=== PATIENT | female | born 1985 | race Two or more races ===

== ENCOUNTER 2023-08-27 14:12 | Inpatient (IN) | payer SELFPAY ==
[~2023-08-27] VITALS: Ht 170.2 cm; Wt 138.3 kg
[2023-08-27] MEDS ORDERED: AZITHROMYCIN 500MG/ 250ML 250 ML IV ONE (15:00)
[2023-08-27] MEDS: SODIUM CHLORIDE 0.9% 4,100 ML IV ONE (15:21)
[2023-08-27] MEDS: cefTRIAXone 1GM/50ML D5W 50 ML IV ONE ×2 (15:22→15:23)
[2023-08-27 15:24] LABS: Basophils # (auto) 0 10 ^3/uL (0-0.2); Basophils % (auto) 0.3 % (0.0-2.0); Eosinophils # (auto) 0 10 ^3/uL (0-0.8); Eosinophils % (auto) 0.1 % (0.0-7.0); Hematocrit 37.6 % (36.0-46.0); Hemoglobin 12.3 g/dL (12.2-16.2); Lymphocytes # (auto) 1.6 10 ^3/uL (0.4-5.4); Lymphocytes % (auto) 14.8 % (10.0-50.0); Mean Corpuscular Hemoglobin 27.9 pg (28.0-32.0); Mean Corpuscular Hgb Conc. 32.7 g/dL (32.0-36.0); Mean Corpuscular Volume 85.2 fL (80.0-100.0); Monocytes # (auto) 1.1 10 ^3/uL (0-1.3); Monocytes % (auto) 10.4 % (0.0-12.0); Neutrophils # (auto) 8.1 10 ^3/uL (1.6-8.6); Neutrophils % (auto) 74.4 % (37.0-80.0); Nucleated Red Blood Cells % 0.1 %; Red Blood Cells 4.41 10^6/uL (4.0-5.20); Red Cell Distribution Width 13.8 % (11.8-14.3); White Blood Cell 10.8 10^3/uL (4.4-10.8)
[2023-08-27 15:36] LABS: Alanine Aminotransferase 11 U/L (7-40); Albumin 4.5 g/dL (3.2-4.8); Alkaline Phosphatase 80 U/L (46-116); Anion Gap 12 (5-15); Aspartate Aminotransferase 9 U/L (13-40); BUN/Creatinine Ratio 11.3 (10.0-20.0); Blood Urea Nitrogen 7 mg/dL (9-23); Calcium 9.1 mg/dL (8.7-10.4); Carbon Dioxide 22 mmol/L (20-30); Chloride 101 mmol/L (98-107); Glucose 107 mg/dL (74-106); Lipase 24 U/L (12-53); Magnesium 1.8 mg/dL (1.6-2.6); Potassium 3.5 mmol/L (3.5-5.1); Sodium 135 mmol/L (136-145); Total Protein 7.4 g/dL (5.7-8.2)
[2023-08-27 15:52] LABS: INR 1.12 (0.9-1.15); Partial Thromboplastin Time 30.4 SEC (24.5-34.5); Prothrombin Time 11.9 sec (9.3-11.8)
[2023-08-27 16:32] LABS: COVID19 ANTIGEN SOFIA FIA NEGATIVE (NEGATIVE); Rapid Influenza A Negative (Negative); Rapid Influenza B Negative (Negative)
[2023-08-27 16:38] LABS: Urine Bacteria NONE SEEN /hpf (None Seen); Urine Blood Negative /uL (Negative); Urine Clarity HAZY (Clear); Urine Color Yellow (Yellow); Urine Mucus FEW (None Seen); Urine Protein, UAD 2+ (Negative); Urine Specific Gravity 1.029 (1.001-1.035); Urine WBC 11 /hpf (0 - 5)
[2023-08-27] MEDS ORDERED: ACETAMINOPHEN 325 MG TAB PO PRN (18:00)
[2023-08-27] MEDS ORDERED: ALBUTEROL SULF 2.5 MG/0.5ML(0.5%) NEB SOLN NEB PRN ×2 (18:00→19:15)
[2023-08-27 18:27] VITALS: PULSE 102; RESP 22; O2SAT 92; O2SAT 93
[2023-08-27] MEDS: IPRATROPIUM BROM 0.5 MG/2.5ML INH SOL NEB SCH ×2 (18:27→21:45)
[2023-08-27] MEDS: ALBUTEROL SULF 2.5 MG/0.5ML(0.5%) NEB SOLN NEB SCH ×2 (18:28→21:45)
[2023-08-27 18:32] VITALS: PULSE 110; RESP 20; O2SAT 95
[2023-08-27 18:36] VITALS: BP 117/81; PULSE 101; PULSE 110; RESP 20; RESP 22; TEMP 97.2; O2SAT 100; O2SAT 95
[2023-08-27 18:44] LABS: Triglycerides 72 mg/dL (< 150)
[2023-08-27 18:45] LABS: LDL Cholesterol 71 mg/dL (< 100)
[2023-08-27 18:46] LABS: Cholesterol 134 mg/dL (< 200); HDL Cholesterol 46 mg/dL (40-59)
[2023-08-27] MEDS: SODIUM CHLORIDE 0.9% 1,000 ML IV SCH (19:44)
[2023-08-27 20:07] VITALS: PULSE 111; RESP 17; O2SAT 96
[2023-08-27 21:45] VITALS: PULSE 97; RESP 15; O2SAT 94
[2023-08-27 21:55] VITALS: PULSE 103; RESP 13; O2SAT 95
[2023-08-28] VITALS (11 sets, daily range): BP systolic 95–110; BP diastolic 62–83; PULSE 90–107; RESP 16–22; TEMP 98.3–100.1; O2SAT 94–100
[2023-08-28] MEDS ORDERED: ALBUAER3 IN (00:41)
[2023-08-28] MEDS: HYDROcodone-ACET 5/325MG TAB PO PRN ×4 (01:31→21:28)
[2023-08-28] MEDS: ALBUTEROL SULF 2.5 MG/0.5ML(0.5%) NEB SOLN NEB SCH ×3 (02:24→11:19)
[2023-08-28] MEDS: IPRATROPIUM BROM 0.5 MG/2.5ML INH SOL NEB SCH ×3 (02:24→11:19)
[2023-08-28] MEDS: SODIUM CHLORIDE 0.9% 1,000 ML IV SCH (04:00)
[2023-08-28 06:39] LABS: Basophils # (auto) 0 10 ^3/uL (0-0.2); Basophils % (auto) 0.2 % (0.0-2.0); Eosinophils # (auto) 0 10 ^3/uL (0-0.8); Eosinophils % (auto) 0.1 % (0.0-7.0); Hematocrit 30.5 % (36.0-46.0); Hemoglobin 9.8 g/dL (12.2-16.2); Lymphocytes # (auto) 1.9 10 ^3/uL (0.4-5.4); Lymphocytes % (auto) 19.1 % (10.0-50.0); Mean Corpuscular Hemoglobin 27.6 pg (28.0-32.0); Mean Corpuscular Hgb Conc. 32.1 g/dL (32.0-36.0); Mean Corpuscular Volume 85.9 fL (80.0-100.0); Monocytes # (auto) 1.4 10 ^3/uL (0-1.3); Monocytes % (auto) 14.2 % (0.0-12.0); Neutrophils # (auto) 6.5 10 ^3/uL (1.6-8.6); Neutrophils % (auto) 66.4 % (37.0-80.0); Red Blood Cells 3.55 10^6/uL (4.0-5.20); Red Cell Distribution Width 13.5 % (11.8-14.3); White Blood Cell 9.8 10^3/uL (4.4-10.8)
[2023-08-28 07:00] LABS: Alanine Aminotransferase 11 U/L (7-40); Albumin 3.7 g/dL (3.2-4.8); Alkaline Phosphatase 62 U/L (46-116); Anion Gap 7 (5-15); Aspartate Aminotransferase 8 U/L (13-40); Bilirubin, Total 0.6 mg/dL (0.2-1.0); Calcium 8.5 mg/dL (8.5-10.1); Carbon Dioxide 25 mmol/L (20-30); Chloride 107 mmol/L (98-107); Glucose 95 mg/dL (74-106); Potassium 3.6 mmol/L (3.5-5.1); Sodium 139 mmol/L (136-145); Total Protein 6.3 g/dL (5.7-8.2)
[2023-08-28 07:06] LABS: BUN/Creatinine Ratio 9.1 (10.0-20.0); Blood Urea Nitrogen < 5 mg/dL (9-23)
[2023-08-28] MEDS: ENOXAPARIN SOD 40 MG/0.4 ML SYRINGE SC SCH (08:38)
[2023-08-28] MEDS ORDERED: cefTRIAXone 1GM/50ML D5W 50 ML IV SCH (09:00)
[2023-08-28] MEDS ORDERED: AZITHROMYCIN 500MG/ 250ML 250 ML IV SCH (10:00)
[2023-08-28] MEDS: AMPICILLIN & SULBACTAM SODIUM 3 GM in SODIUM CHL 0.9% 100 ML IV SCH ×3 (15:25→21:27)
[2023-08-29] VITALS (8 sets, daily range): BP systolic 98–141; BP diastolic 56–86; PULSE 76–114; RESP 16–26; TEMP 98.2–99.1; O2SAT 95–99
[2023-08-29] MEDS: HYDROcodone-ACET 5/325MG TAB PO PRN (02:58)
[2023-08-29] MEDS ORDERED: ALBUTEROL SULF 2.5 MG/0.5ML(0.5%) NEB SOLN NEB PRN (03:00)
[2023-08-29] MEDS ORDERED: IPRATROPIUM BROM 0.5 MG/2.5ML INH SOL NEB PRN (03:00)
[2023-08-29] MEDS ORDERED: MORPHINE SULFATE INJ 2 MG/ml SYRG IV ONE (03:30)
[2023-08-29] MEDS: AMPICILLIN & SULBACTAM SODIUM 3 GM in SODIUM CHL 0.9% 100 ML IV SCH ×5 (03:33→21:59)
[2023-08-29 06:43] LABS: Albumin 3.9 g/dL (3.2-4.8); Alkaline Phosphatase 65 U/L (46-116); Anion Gap 7 (5-15); Aspartate Aminotransferase 10 U/L (13-40); Bilirubin, Total 0.4 mg/dL (0.2-1.0); Calcium 8.7 mg/dL (8.7-10.4); Carbon Dioxide 25 mmol/L (20-30); Chloride 104 mmol/L (98-107); Glucose 119 mg/dL (74-106); Magnesium 1.7 mg/dL (1.6-2.6); Potassium 3.1 mmol/L (3.5-5.1); Sodium 136 mmol/L (136-145)
[2023-08-29 06:48] LABS: Alanine Aminotransferase 9 U/L (7-40); BUN/Creatinine Ratio 9.4 (10.0-20.0); Blood Urea Nitrogen < 5 mg/dL (9-23)
[2023-08-29 07:05] LABS: Basophils # (auto) 0 10 ^3/uL (0-0.2); Basophils % (auto) 0.3 % (0.0-2.0); Eosinophils # (auto) 0 10 ^3/uL (0-0.8); Eosinophils % (auto) 0.2 % (0.0-7.0); Hematocrit 30.6 % (36.0-46.0); Hemoglobin 10.2 g/dL (12.2-16.2); Lymphocytes # (auto) 1.2 10 ^3/uL (0.4-5.4); Lymphocytes % (auto) 14.6 % (10.0-50.0); Mean Corpuscular Hgb Conc. 33.2 g/dL (32.0-36.0); Mean Corpuscular Volume 87.1 fL (80.0-100.0); Monocytes # (auto) 0.8 10 ^3/uL (0-1.3); Monocytes % (auto) 9.1 % (0.0-12.0); Neutrophils # (auto) 6.3 10 ^3/uL (1.6-8.6); Neutrophils % (auto) 75.8 % (37.0-80.0); Red Blood Cells 3.51 10^6/uL (4.0-5.20); Red Cell Distribution Width 13.6 % (11.8-14.3); White Blood Cell 8.4 10^3/uL (4.4-10.8)
[2023-08-29 07:09] LABS: Total Protein 6.7 g/dL (5.7-8.2)
[2023-08-29] MEDS ORDERED: VANCOMYCIN 1GM/200ML 200 ML IV ONE (07:30)
[2023-08-29] MEDS ORDERED: POTASSIUM CHL 20 Meq TABLET PO ONE (07:30)
[2023-08-29] MEDS ORDERED: VANCOMYCIN PER PHARMACY 0 MG IV SCH (07:30)
[2023-08-29] MEDS: ENOXAPARIN SOD 40 MG/0.4 ML SYRINGE SC SCH (09:58)
[2023-08-29] MEDS: VANCOMYCIN 1GM/200ML 200 ML IV SCH (17:31)
[2023-08-30] VITALS (9 sets, daily range): BP systolic 100–132; BP diastolic 62–106; PULSE 74–112; RESP 16–22; TEMP 98.1–99.4; O2SAT 92–99
[2023-08-30] MEDS: VANCOMYCIN 1GM/200ML 200 ML IV SCH ×2 (01:06→09:43)
[2023-08-30] MEDS: AMPICILLIN & SULBACTAM SODIUM 3 GM in SODIUM CHL 0.9% 100 ML IV SCH ×3 (06:23→17:23)
[2023-08-30 06:32] LABS: Chloride 101 mmol/L (98-107); Potassium 3.9 mmol/L (3.5-5.1); Sodium 138 mmol/L (136-145)
[2023-08-30 06:33] LABS: Anion Gap 9 (5-15); Calcium 8.7 mg/dL (8.7-10.4); Carbon Dioxide 28 mmol/L (20-30)
[2023-08-30 06:38] LABS: BUN/Creatinine Ratio 9.3 (10.0-20.0); Blood Urea Nitrogen 5 mg/dL (9-23); Glucose 100 mg/dL (74-106)
[2023-08-30] MEDS: HYDROcodone-ACET 5/325MG TAB PO PRN ×2 (09:44→19:04)
[2023-08-30] MEDS: ENOXAPARIN SOD 40 MG/0.4 ML SYRINGE SC SCH (09:44)
[2023-08-30 15:06] LABS: QuantiFERON-TB Gold Plus Negative (Negative)
[2023-08-30 19:06] LABS: Treponema pallidum Ab (FTA-Ab) Reactive (Non Reactive)
[2023-08-30] MEDS ORDERED: ALBUTEROL SULF 2.5 MG/0.5ML(0.5%) NEB SOLN ONE (19:49)
[2023-08-30] MEDS ORDERED: methylPREDNISolone SOD SUCC 40 MG/ML VL IV ONE (20:30)
[2023-08-31] VITALS (13 sets, daily range): BP systolic 118–136; BP diastolic 68–81; PULSE 67–94; RESP 16–19; TEMP 97.6–98.2; O2SAT 93–97
[2023-08-31] MEDS: AMPICILLIN & SULBACTAM SODIUM 3 GM in SODIUM CHL 0.9% 100 ML IV SCH ×5 (00:07→22:45)
[2023-08-31] MEDS: ALBUTEROL SULF 2.5 MG/0.5ML(0.5%) NEB SOLN NEB SCH ×4 (00:20→18:58)
[2023-08-31] MEDS: methylPREDNISolone SOD SUCC 40 MG/ML VL IV SCH ×3 (05:51→22:20)
[2023-08-31] MEDS: ENOXAPARIN SOD 40 MG/0.4 ML SYRINGE SC SCH (10:29)
[2023-09-01] VITALS (12 sets, daily range): BP systolic 108–126; BP diastolic 68–82; PULSE 71–90; RESP 16–20; TEMP 97.5–98.2; O2SAT 94–100
[2023-09-01] MEDS: AMPICILLIN & SULBACTAM SODIUM 3 GM in SODIUM CHL 0.9% 100 ML IV SCH ×4 (04:45→22:33)
[2023-09-01] MEDS: methylPREDNISolone SOD SUCC 40 MG/ML VL IV SCH ×3 (06:00→22:29)
[2023-09-01] MEDS: ALBUTEROL SULF 2.5 MG/0.5ML(0.5%) NEB SOLN NEB SCH ×3 (06:39→18:41)
[2023-09-01] MEDS: ENOXAPARIN SOD 40 MG/0.4 ML SYRINGE SC SCH (09:58)
[2023-09-01] MEDS: HYDROcodone-ACET 5/325MG TAB PO PRN (11:50)
[2023-09-01] MEDS ORDERED: LORazepam 2MG/ML-1ML VIAL IV PRN (19:45)
[2023-09-02] VITALS (14 sets, daily range): BP systolic 108–134; BP diastolic 65–88; PULSE 57–86; RESP 16–20; TEMP 97.8–98.3; O2SAT 94–100
[2023-09-02] MEDS: AMPICILLIN & SULBACTAM SODIUM 3 GM in SODIUM CHL 0.9% 100 ML IV SCH ×3 (04:45→17:07)
[2023-09-02] MEDS: methylPREDNISolone SOD SUCC 40 MG/ML VL IV SCH ×3 (05:59→21:59)
[2023-09-02] MEDS: ALBUTEROL SULF 2.5 MG/0.5ML(0.5%) NEB SOLN NEB SCH ×3 (06:09→19:23)
[2023-09-02] MEDS: ENOXAPARIN SOD 40 MG/0.4 ML SYRINGE SC SCH (10:00)
[2023-09-03] VITALS (13 sets, daily range): BP systolic 100–124; BP diastolic 56–78; PULSE 61–96; RESP 15–18; TEMP 97.6–98.2; O2SAT 95–99
[2023-09-03] MEDS: AMPICILLIN & SULBACTAM SODIUM 3 GM in SODIUM CHL 0.9% 100 ML IV SCH ×5 (00:05→20:58)
[2023-09-03] MEDS: methylPREDNISolone SOD SUCC 40 MG/ML VL IV SCH ×2 (05:21→20:57)
[2023-09-03] MEDS: ALBUTEROL SULF 2.5 MG/0.5ML(0.5%) NEB SOLN NEB SCH ×3 (07:03→18:40)
[2023-09-03] MEDS: ENOXAPARIN SOD 40 MG/0.4 ML SYRINGE SC SCH (10:30)
[2023-09-03 14:06] LABS: Aspergillus flavus Negative (Neg:<1:1); Aspergillus fumigatus Negative (Neg:<1:1); Aspergillus niger Negative (Neg:<1:1)
[2023-09-04] VITALS (11 sets, daily range): BP systolic 97–108; BP diastolic 60–74; PULSE 63–85; RESP 16–19; TEMP 97.7–98.2; O2SAT 94–100
[2023-09-04] MEDS: ALBUTEROL SULF 2.5 MG/0.5ML(0.5%) NEB SOLN NEB SCH ×3 (06:28→18:00)
[2023-09-04] MEDS: AMPICILLIN & SULBACTAM SODIUM 3 GM in SODIUM CHL 0.9% 100 ML IV SCH ×4 (07:02→23:22)
[2023-09-04] MEDS: ENOXAPARIN SOD 40 MG/0.4 ML SYRINGE SC SCH (10:00)
[2023-09-04] MEDS: methylPREDNISolone SOD SUCC 40 MG/ML VL IV SCH ×2 (10:27→22:00)
[2023-09-05] MEDS: AMPICILLIN & SULBACTAM SODIUM 3 GM in SODIUM CHL 0.9% 100 ML IV SCH ×2 (05:11→10:17)
[2023-09-05] MEDS: ALBUTEROL SULF 2.5 MG/0.5ML(0.5%) NEB SOLN NEB SCH (07:05)
[2023-09-05 08:00] VITALS: PULSE 65; RESP 20; O2SAT 96
[2023-09-05 09:00] VITALS: BP 108/66; PULSE 65; RESP 20; TEMP 97.9; O2SAT 96
[2023-09-05] MEDS: ENOXAPARIN SOD 40 MG/0.4 ML SYRINGE SC SCH (10:16)
[2023-09-05] MEDS: methylPREDNISolone SOD SUCC 40 MG/ML VL IV SCH (10:16)
[2023-09-05 13:00] VITALS: BP 107/73; PULSE 62; RESP 20; TEMP 97.5; O2SAT 96
[2023-09-05] MEDS ORDERED: METH4PAK PO (13:10)
[2023-09-05] MEDS ORDERED: AUG875T PO (13:11)
[2023-09-05] MEDS ORDERED: ALBUAER3 IN (13:24)
[2023-09-05 14:27] VITALS: BP 107/73; PULSE 62; RESP 20; TEMP 97.5; O2SAT 96
== END 2023-09-05 15:10 | disposition home or self-care (01) | DRG 194 ==
LOC: ER 14:12 → EAST 18:00 → OVERFLOW 18:00 → EAST 23:40
PROVIDERS: ADMIT Nurse Practitioner Family; ATTEND Internal Medicine Geriatric Medicine
DX: J18.9 Pneumonia, unspecified organism (principal); J45.901 Unspecified asthma with (acute) exacerbation; Z68.42 Body mass index [BMI] 45.0-49.9, adult; E66.01 Morbid (severe) obesity due to excess calories; J45.909 Unspecified asthma, uncomplicated; R25.1 Tremor, unspecified; Z20.822 Contact with and (suspected) exposure to COVID-19; E87.6 Hypokalemia; R00.0 Tachycardia, unspecified; R07.89 Other chest pain; Z82.49 Family history of ischemic heart disease and other diseases of the circulatory system; Z83.3 Family history of diabetes mellitus
CPT/HCPCS: 36415; 70551; 71045; 71250; 80048; 80053; 80061; 80202; 81001; 82962; 83036; 83690; 83735; 83880; 84443; 84484; 84702; 85025; 85379; 85610; 85730; 86592; 86606; 86703; 87040; 87070; 87081; 87205; 87426; 87804; 93005; 93970; 94640; 96365; 96366; 96368; G0378

== ENCOUNTER 2024-04-05 09:22 | Inpatient (IN) | payer MEDICAID, OTHER ==
[~2024-04-05] VITALS: Ht 170.2 cm; Wt 154.3 kg
[~2024-04-05 09:22] MED LIST: ALBUAER3 IN; AUG875T PO; METH4PAK PO
[2024-04-05 09:35] VITALS: PULSE 66; RESP 24; O2SAT 96
[2024-04-05 10:14] LABS: Basophils # (auto) 0 10 ^3/uL (0-0.2); Basophils % (auto) 0.4 % (0.0-2.0); Eosinophils # (auto) 0.1 10 ^3/uL (0-0.8); Eosinophils % (auto) 0.6 % (0.0-7.0); Hematocrit 36.3 % (36.0-46.0); Hemoglobin 12.1 g/dL (12.2-16.2); Lymphocytes # (auto) 1.6 10 ^3/uL (0.4-5.4); Lymphocytes % (auto) 18.6 % (10.0-50.0); Mean Corpuscular Hemoglobin 29.3 pg (28.0-32.0); Mean Corpuscular Hgb Conc. 33.3 g/dL (32.0-36.0); Mean Corpuscular Volume 88.1 fL (80.0-100.0); Monocytes # (auto) 0.4 10 ^3/uL (0-1.3); Monocytes % (auto) 4.4 % (0.0-12.0); Neutrophils # (auto) 6.4 10 ^3/uL (1.6-8.6); Nucleated Red Blood Cells % 0.1 %; Platelet Count (auto) 273 10^3/uL (140-450); Red Blood Cells 4.12 10^6/uL (4.0-5.20); White Blood Cell 8.5 10^3/uL (4.4-10.8)
[2024-04-05 10:24] LABS: Chloride 106 mmol/L (98-107); Potassium 3.7 mmol/L (3.5-5.1); Sodium 138 mmol/L (136-145)
[2024-04-05 10:25] LABS: Anion Gap 9 (5-15); Calcium 9.4 mg/dL (8.7-10.4); Carbon Dioxide 23 mmol/L (20-30)
[2024-04-05 10:30] LABS: BUN/Creatinine Ratio 15.4 (10.0-20.0); Blood Urea Nitrogen 12 mg/dL (9-23); Glucose 210 mg/dL (74-106)
[2024-04-05] MEDS: ONDANSETRON HCL 4 MG/2 ML VIAL IV ONE (10:34)
[2024-04-05] MEDS: MORPHINE SULFATE 4 MG/ML SYR/VIAL IV ONE (10:34)
[2024-04-05] MEDS: SODIUM CHLORIDE 0.9% 1,000 ML IVB ONE (10:34)
[2024-04-05] MEDS: PROCHLORPERAZINE EDISYLATE 5 MG/ML 2ML VIAL IV ONE (12:22)
[2024-04-05 13:15] LABS: Urine Bacteria FEW /hpf (None Seen); Urine Blood 2+ /uL (Negative); Urine Clarity Clear (Clear); Urine Color Yellow (Yellow); Urine Protein, UAD Negative (Negative); Urine Specific Gravity 1.026 (1.001-1.035); Urine Urobilinogen Normal (Negative); Urine WBC 2 /hpf (0 - 5); Urine pH 5.5 (5.0-9.0)
[2024-04-05] MEDS: DONNATAL 5ml ORAL Elix (BELLADONNA ALK-PHENOBARB) PO ONE (14:32)
[2024-04-05] MEDS: MAALOX PLUS or MAALOX 30 ML PO ONE (14:32)
[2024-04-05] MEDS: LIDOCAINE VISCOUS 2% 15ML UD PO ONE (14:33)
[2024-04-05] MEDS: IOHEXOL 300 MG/ML 100ML BOTTLE IJ ONE (14:34)
[2024-04-05] MEDS: SODIUM CHLORIDE 0.9% 1,000 ML IV ONE ×2 (14:37→22:14)
[2024-04-05 15:00] LABS: Amphetamine Screen, Urine Neg (NEGATIVE); Barbiturate Scree,Urine Neg (NEGATIVE); Benzodiazephine Screen, Urine Neg (NEGATIVE); Cannabinoid Screen, Urine Pos (NEGATIVE); Cocaine Screen, Urine Neg (NEGATIVE); Opiate Scree,Urine Pos (NEGATIVE); Phencyclidine Screen, Urine Neg (NEGATIVE)
[2024-04-05 15:03] LABS: Alanine Aminotransferase 15 U/L (7-40); Albumin 4.5 g/dL (3.2-4.8); Alkaline Phosphatase 90 U/L (46-116); Aspartate Aminotransferase 13 U/L (13-40); Bilirubin, Direct < 0.1 mg/dL (<0.3); Bilirubin, Total 0.3 mg/dL (0.2-1.0); Total Protein 7.1 g/dL (5.7-8.2)
[2024-04-05 15:16] LABS: Lipase 29 U/L (12-53)
[2024-04-05] MEDS: SODIUM CHLORIDE 0.9% 1,000 ML IV SCH (18:45)
[2024-04-05] MEDS ORDERED: ONDANSETRON HCL 4 MG/2 ML VIAL IV PRN (18:45)
[2024-04-05] MEDS ORDERED: NITROGLYCERIN 0.4 MG SL TAB SL PRN (18:45)
[2024-04-05] MEDS ORDERED: MORPHINE SULFATE INJ 2 MG/ml SYRG IV PRN (18:45)
[2024-04-05] MEDS ORDERED: ALBUTEROL SULF 2.5 MG/0.5ML(0.5%) NEB SOLN NEB PRN (18:45)
[2024-04-05] MEDS: MANNITOL 20% SOLN 100 gm/500ml 300 ML IV ONE (19:00)
[2024-04-05 19:10] VITALS: PULSE 61; RESP 13; O2SAT 100
[2024-04-05 19:22] VITALS: BP 119/62; PULSE 59; RESP 16; TEMP 98.2; O2SAT 100
[2024-04-05] MEDS: FUROSEMIDE 20 MG/2 ML VIAL IV ONE (22:11)
[2024-04-05] MEDS: FAMOTIDINE 20 MG TAB PO SCH (22:11)
[2024-04-05] MEDS: TAMSULOSIN HYDROCHLORIDE 0.4 MG CAP PO ONE (22:11)
[2024-04-05] MEDS: metroNIDAZOLE 500MG/100ML 100 ML IV SCH (22:12)
[2024-04-06] VITALS (7 sets, daily range): BP systolic 94–124; BP diastolic 62–67; PULSE 72–75; RESP 16–20; TEMP 98.1–98.5; O2SAT 94–99
[2024-04-06 04:04] LABS: Chloride 107 mmol/L (98-107); Potassium 3.8 mmol/L (3.5-5.1); Sodium 138 mmol/L (136-145)
[2024-04-06 04:05] LABS: Anion Gap 4 (5-15); Carbon Dioxide 27 mmol/L (20-30)
[2024-04-06 04:06] LABS: Calcium 8.9 mg/dL (8.7-10.4)
[2024-04-06 04:11] LABS: BUN/Creatinine Ratio 12.9 (10.0-20.0); Blood Urea Nitrogen 8 mg/dL (9-23); Glucose 110 mg/dL (74-106); LDL Cholesterol 95 mg/dL (< 100); Triglycerides 69 mg/dL (< 150)
[2024-04-06 04:13] LABS: Cholesterol 159 mg/dL (< 200); HDL Cholesterol 54 mg/dL (40-59)
[2024-04-06 08:18] LABS: INR 1.08 (0.9-1.15); Partial Thromboplastin Time 25.2 SEC (24.5-34.5); Prothrombin Time 11.4 sec (9.3-11.8)
[2024-04-06] MEDS: KETOROLAC TROMETH 30 MG/ML 1ML VIAL IV PRN (09:37)
[2024-04-06] MEDS: cefTRIAXone 1GM/50ML D5W 50 ML IV SCH (09:37)
[2024-04-06] MEDS: ENOXAPARIN SOD 40 MG/0.4 ML SYRINGE SC SCH (09:37)
[2024-04-06] MEDS: MANNITOL FTV 25% 12.5 GM/50 ML 50 ML IV ONE ×2 (11:45→11:55)
[2024-04-07] VITALS (7 sets, daily range): BP systolic 104–115; BP diastolic 63–72; PULSE 60–71; RESP 18–20; TEMP 97.9–98.7; O2SAT 96–100
[2024-04-07] MEDS: MANNITOL FTV 25% 12.5 GM/50 ML 50 ML IV ONE (13:45)
[2024-04-07] MEDS ORDERED: LIDOCAINE HCL 2% TOP JELLY 5ML TOP ONE (14:40)
[2024-04-07] MEDS ORDERED: GLYCOPYRROLATE 0.2 MG/ML 1ML VIAL ONE (14:41)
[2024-04-07] MEDS ORDERED: KETOROLAC TROMETH 30 MG/ML 1ML VIAL ONE (14:41)
[2024-04-07] MEDS ORDERED: SUGAMMADEX 200mg/2ml Vial (100MG/ML) IV ONE (14:41)
[2024-04-07] MEDS ORDERED: LIDOCAINE 2% (LOCAL ANESTH.) PF 5ml SDV ONE (14:41)
[2024-04-07] MEDS ORDERED: ROCURONIUM 10MG/ML 10ML VIAL IV ONE (14:41)
[2024-04-07] MEDS ORDERED: PROPOFOL 10 MG/ML 20 ML IV ONE ×2 (14:41→17:12)
[2024-04-07] MEDS ORDERED: DexAMETHasone SOD PHOS 10MG/1ML VIAL INJ ONE (14:41)
[2024-04-07] MEDS ORDERED: ONDANSETRON HCL 4 MG/2 ML VIAL ONE (14:41)
[2024-04-07] MEDS ORDERED: fentaNYL CITRATE 100 MCG/2 ML VL ONE (14:46)
[2024-04-07] MEDS ORDERED: KETAMINE 50mg/ML 1ml syringe ONE (14:46)
[2024-04-07] MEDS ORDERED: ePHEDrine SULFATE 50 MG/ML AMP ONE (16:56)
[2024-04-07] MEDS ORDERED: fentaNYL CITRATE 100 MCG/2 ML VL IV PRN (17:45)
[2024-04-07] MEDS ORDERED: ePHEDrine SULFATE 50 MG/ML AMP IV PRN (17:45)
[2024-04-07] MEDS ORDERED: FLUMAZENIL 0.1 MG/ML INJ 10ML MDV IV PRN (17:45)
[2024-04-07] MEDS ORDERED: ONDANSETRON HCL 4 MG/2 ML VIAL IV PRN (17:45)
[2024-04-07] MEDS ORDERED: NALOXONE HCL 0.4 MG/ML VIAL IV PRN (17:45)
[2024-04-07] MEDS ORDERED: hydrALAZINE HCL 20 MG/ML VL IV PRN (17:45)
[2024-04-07] MEDS: HYDROmorphone HCL 2 MG/ML VL/or syr IV PRN (18:30)
[2024-04-07] MEDS ORDERED: HYDROcodone-ACET 5/325MG TAB PO PRN (23:15)
[2024-04-07] MEDS: HYDROcodone-ACET 5/325MG TAB PO PRN (23:41)
[2024-04-07] MEDS ORDERED: HYDROcodone-ACET 5/325MG TAB ONE (23:43)
[2024-04-08 01:00] VITALS: BP 131/82; PULSE 61; RESP 20; TEMP 98; O2SAT 95
[2024-04-08 05:00] VITALS: BP 138/75; PULSE 57; RESP 19; TEMP 97.9; O2SAT 94
[2024-04-08 08:53] VITALS: BP 141/72; PULSE 51; RESP 20; TEMP 98.2; O2SAT 97
[2024-04-08 09:15] VITALS: O2SAT 99
[2024-04-08] MEDS ORDERED: ACET300T58 PO (12:53)
[2024-04-08] MEDS ORDERED: AMOX500T86 PO (12:53)
[2024-04-08] MEDS ORDERED: METR-344 PO (12:53)
[2024-04-08 12:54] VITALS: BP 120/70; PULSE 62; RESP 20; TEMP 98.3; O2SAT 97
[2024-04-08 15:01] VITALS: BP 120/70; PULSE 62; RESP 20; TEMP 36.8; O2SAT 97
[2024-04-10] MEDS ORDERED: ACE3T PO (14:25)
== END 2024-04-08 16:20 | disposition home or self-care (01) | DRG 465 ==
LOC: EDUNIT# 09:22 → ER 09:22 → EDBD 09:22 → OVERFLOW 18:32 → WEST WING 04-06 04:17
PROVIDERS: ADMIT Hospitalist; ATTEND Hospitalist
PROC: 0TF6XZZ Fragmentation in Right Ureter, External Approach (ICD-10-PCS; 2024-04-07)
PROC: 0T768DZ Dilation of Right Ureter with Intraluminal Device, Via Natural or Artificial Opening Endoscopic (ICD-10-PCS; principal; 2024-04-07 15:58)
PROC: BT1D1ZZ Fluoroscopy of Right Kidney, Ureter and Bladder using Low Osmolar Contrast (ICD-10-PCS; 2024-04-07 15:58)
DX: N13.2 Hydronephrosis with renal and ureteral calculous obstruction (principal); Z68.43 Body mass index [BMI] 50.0-59.9, adult; E66.01 Morbid (severe) obesity due to excess calories; J45.909 Unspecified asthma, uncomplicated; E11.9 Type 2 diabetes mellitus without complications; Z79.899 Other long term (current) drug therapy; Z82.49 Family history of ischemic heart disease and other diseases of the circulatory system; Z83.3 Family history of diabetes mellitus; K52.9 Noninfective gastroenteritis and colitis, unspecified
CPT/HCPCS: 36415; 74177; 80048; 80061; 80076; 80307; 81001; 83036; 83605; 83690; 84702; 85025; 85610; 85730; 87040; G0378; J1100; J1885; J2001; J2405; J2704; J3490